=== PATIENT | female | born 1985 | race Caucasian/White ===

== ENCOUNTER 2018-01-01 09:31 | Emergency (ER) | payer BC ==
[~2018-01-01] VITALS: Ht 160 cm; Wt 93.0 kg
[~2018-01-01 09:31] MED LIST: BIRTH CONTROL; Cleocin HCl300 MG PO; Crutch1 EACH MISC; IBUP800 PO; Norco 5-325 Ta1 EACH PO; TRAM50 PO
[2018-01-01] MEDS ORDERED: Ultram50 MG PO (11:08)
== END 2018-01-01 11:09 | disposition home or self-care (01) ==
LOC: ER 09:31
DX: M25.562 Pain in left knee (principal); F17.200 Nicotine dependence, unspecified, uncomplicated; W19.XXXA Unspecified fall, initial encounter
CPT/HCPCS: 73564; 96372; 99283; J1885

== ENCOUNTER 2021-10-09 10:15 | Emergency (ER) | payer BC ==
[~2021-10-09] VITALS: Ht 157.5 cm; Wt 95.2 kg
[~2021-10-09 10:15] MED LIST changes: +COMPAZINE10 MG PO; +Ultram50 MG PO
[2021-10-09] MEDS ORDERED: Ultram50 MG PO (12:23)
== END 2021-10-09 12:39 | disposition home or self-care (01) ==
LOC: ER 10:15
DX: M25.561 Pain in right knee (principal); F17.210 Nicotine dependence, cigarettes, uncomplicated
CPT/HCPCS: 73564; J1885

== ENCOUNTER 2022-07-08 08:30 | Emergency (ER) | payer BC ==
[~2022-07-08] VITALS: Ht 157.5 cm; Wt 93.0 kg
== END 2022-07-08 09:54 | disposition home or self-care (01) ==
LOC: ER 08:30
DX: M23.8X2 Other internal derangements of left knee (principal); F17.210 Nicotine dependence, cigarettes, uncomplicated
CPT/HCPCS: 73562-LT; 99283-25